=== PATIENT | male | born 1945 | race Caucasian/White ===

== ENCOUNTER 2016-10-19 23:01 | Day surgery (SDC) | payer MEDICARE, OTHER ==
[~2016-10-19] VITALS: Ht 182.9 cm; Wt 98.8 kg
[2016-10-19] MEDS ORDERED: DiphenhydrAMINE 50 MG/ML INJECTION IV ONE (23:45)
[2016-10-19] MEDS ORDERED: HYDROMORPHONE 2mg/ml INJECTION IV ONE (23:45)
[2016-10-19] MEDS ORDERED: ONDANSETRON 4mg/2ml INJECTION IV ONE (23:45)
--- NOTE | 2016-10-19 23:52 | ERPDOC ---
Departure Disposition Decision Date: Oct 20, 2016 Disposition Decision Time: 01:10 Disposition: 02 [place] [facility] [place] Impression Impression: Primary Impression: Acute appendicitis Acute appendicitis type: unspecified acute appendicitis type Qualified Codes : K35.80 - Unspecified acute appendicitis Condition: Improved Seen By: Physician only Problems/Meds/Labs Reviewed?: Yes Medications reviewed and manag: Yes Follow up care ordered?: No (OBSERVATION) Mental Status: Alert, Oriented HPI - Abdominal Pain General Chief Complaint: Abdominal Pain Stated Complaint: LOWER ABD PAIN Time Seen by Provider: 23:17 Source: patient, family () HPI - Abdominal Pain Initial Comments 71 YO WM who presents to ER for right lower quadrant abdominal pain. Patient reports onset of pain this morning. He has associated nausea and decreased appetite. Pain Scale: Now & Worst: 7/10 Location: RLQ 1 - RLQ pain Modifying Factors: WORSE WITH: movement, palpation, walking Associated Symptoms: DENIES: back pain, chest pain, diaphoresis, shortness of breath, syncope Hx of Similar Symptoms: No Allergies: Coded Allergies: Iodinated Contrast Media - Oral and (Verified Allergy, Unknown, 10/19/16) Past History Past Medical History Metabolic: diabetes, hypertension Surgical History General: gallbladder Family History Family History Comments Non-contributory Social History Smoking Status: Never smoker Substance Use Type: does not use Marital Status: Sexuality: female partner Housing: house Household Members: spouse Social History Comments visiting for Review of Systems Constitutional Constitutional: appetite decrease, DENIES: fever Eyes General: DENIES: erythema, exudate, photophobia Vision: DENIES: blurring ENMT Sinuses: DENIES: congestion Nose: DENIES: nosebleeds Mouth/Throat: DENIES: change in swallowing, painful swallowing, sore throat Cardiovascular Cardiac: DENIES: chest pain, dyspnea on exertion Rhythm/Rate: DENIES: irregular beat, palpitations Pulmonary Respiratory: DENIES: cough, dyspnea, pleuritic chest pain GI Upper Abdomen: nausea, see HPI, DENIES: hematemesis, vomiting Lower Abdomen: pain (right lower quadrant), DENIES: blood in stool, constipation, melena General: DENIES: burning, cloudy urine, dysuria, frequency, hematuria, pain, urgency Neurological General: DENIES: headache, seizures, syncope Hematologic/Lymphatic Hematologic/Lymphatic: DENIES: anemia, easy bruising All other Systems All Other Systems: Reviewed and Negative Physical Exam General General Nourishment: well nourished, well developed, appears stated age, no acute distress Vitals and Pain First Documented Vital Signs Date Time Temp Pulse Resp B/P Pulse Ox O2 Delivery O2 Flow Rate FiO2 10/19/16 23:09 97.3 83 16 129/80 97 Room Air Weight: Kilograms: 95.300 Height (feet): 6 Height (inches): 0 Triage Pain Scale: RN VS reviewed by Provider: Yes Normal Exams: Head: Normocephalic w/o trauma Eyes: Pupils are PERRLA w/ EOMI, No scleral icterus ENMT: No facial trauma, nasal exudates, pharyngeal erythema Neck: Full range of motion, without adenopathy, JVD, bruits or thyromegaly Chest/Resp: Clear all whitfield, with good airflow, and symmetry bilaterally CV: Regular rate and rhythm, without murmur or gallop, Pulses 2+ all extremities, capillary refill, <2 seconds all ext., no pedal edema noted Musculoskeletal: No tenderness, or deformity noted, good range of motion Integumentary: No rashes, hives, or bruising noted Neurologic: Patient is alert, and oriented, cranial nerves, motor/sensory/ cerebellar, exams w/o gross deficits Psychiatric: Patient exhibits, appropriate attention, emotion and affect Abdomen (brief) Abdominal Brief: FOUND: soft, tender (Tender to palpation RLQ. Voluntary guarding.), NOT FOUND: distended, hepatosplenomegaly, pulsatile mass Differential Diagnoses Considering: Appendicitis, Diverticulitis, Gastroenteritis, Renal Colic, UTI Progress Results/Orders Orders Procedure Category Date Status Time Cbc W/Auto LAB 10/19/16 Complete Diff-Reflex Manual Cmp - Comprehensive LAB 10/19/16 Complete Metabolic Ua, Dip Wreflex LAB 10/19/16 Complete Micro[employer] Setter 23:32 Ondansetron Inj PHA 10/19/16 Complete (Zofran) 23:45 Diphenhydramine PHA 10/19/16 Complete (Benadryl) 23:45 Methylprednisolone PHA 10/19/16 Complete Sod Succ (Solu-Medrol 23:45 Hydromorphone PHA 10/19/16 Complete (Dilaudid) 23:45 Ct Abd/Pelvis CT 10/20/16 Taken W/Contrast Only 00:17 Iohexol (Omnipaque) PHA 10/20/16 Complete 00:21 Normal Saline (Ns) PHA 10/20/16 Complete 00:21 Saline Flush (Iv PHA 10/20/16 Complete Flush) 00:21 Normal Saline (Normal PHA 10/20/16 Complete Saline Iv) 00:45 Place In Facility: ED ADM 10/20/16 Transmitted 01:19 Measure Vital Signs MIKAYLA 10/20/16 In Process 01:19 Up In Room With Assist [facility] 10/20/16 In Process 01:19 Npo: Nothing By Mouth DIET 10/20/16 Transmitted Breakfast Iv Lock (Nursing) [facility] 10/20/16 In Process 01:19 Normal Saline (Normal PHA 10/20/16 In Process Saline Iv) 01:19 Pantoprazole PHA 10/20/16 In Process (Protonix Iv) 09:00 Ondansetron Inj PHA 10/20/16 In Process (Zofran) 01:30 Blood Glucose [facility] 10/20/16 In Process Assessment Bgm 01:19 Cbc W/Auto LAB 10/21/16 Verified Diff-Reflex Manual 04:00 Cmp - Comprehensive LAB 10/21/16 Verified Metabolic 04:00 Ertapenem (Invanz) PHA 10/20/16 Complete 01:30 Hydromorphone PHA 10/20/16 In Process (Dilaudid) 01:30 Lab Results Laboratory Tests Test 10/19/16 23:49 10/19/16 23:54 White Blood Count 10.8T/MM3 Red Blood Count 4.85M/MM3 Hemoglobin 15.7GM/DL Hematocrit 44.9% Mean Corpuscular Volume 92.6UM3 Mean Corpuscular Hemoglobin 32.4UUG Mean Corpuscular Hemoglobin Concent 35.0GM/DL RDW Standard Deviation 45.1FL Platelet Count 156T/MM3 Mean Platelet Volume 9.7UM3 Immature Granulocyte % (Auto) 0.3% Neutrophils (%) (Auto) 72.3% Lymphocytes (%) (Auto) 19.1% Monocytes (%) (Auto) 7.5% Eosinophils (%) (Auto) 0.5% Basophils (%) (Auto) 0.3% Absolute Immature Granulocyte (auto 0.03T/MM3 Absolute Neutrophils (auto) 7.8T/MM3 Absolute Lymphocytes (auto) 2.1T/MM3 Absolute Monocytes (auto) 0.8T/MM3 Absolute Eosinophils (auto) 0.1T/MM3 Absolute Basophils (auto) 0.0T/MM3 Turbidity < 20 Sodium Level 145MEQ/L Potassium Level 3.8MEQ/L Chloride Level 108MEQ/L Carbon Dioxide Level 24MEQ/L Anion Gap 13MEQ/L Blood Urea Nitrogen 9.0MG/DL Creatinine 0.7MG/DL Glomerular Filtration Rate Calc 112 BUN/Creatinine Ratio 13RATIO Glucose Level 148MG/DL Calculated Osmolality 281MOSM/KG Calcium Level 9.0MG/DL Total Bilirubin 0.80MG/DL Icterus Index < 2 Aspartate Amino Transf (AST/SGOT) 20U/L Alanine Aminotransferase (ALT/SGPT) 32U/L Alkaline Phosphatase 62U/L Total Protein 5.9G/DL Albumin 3.7G/DL Globulin 2.2G/DL Albumin/Globulin Ratio 1.7RATIO Chemistry Specimen Hemolysis < 15 Urine Collection Type Cleancatch-midstream Urine Color Yellow Urine Turbidity Clear Urine pH 5.5 Urine Specific Mcintosh 1.020 Urine Protein Negative Urine Glucose (UA) 3+ Urine Ketones 1+ Urine Blood Negative Urine Nitrite Negative Urine Bilirubin Negative Urine Urobilinogen 0.2EU/DL Urine Leukocyte Esterase Negative Urinalysis Comment Microscopic not ind. Medications Current ED Medications Ondansetron HCl (Zofran) 4 mg O ONCE IV Last administered on 10/19/16 23:56; Start 10/19/16 at 23:45; Stop 10/19/16 at 23:46; Status DC Diphenhydramine HCl (Benadryl) 50 mg O ONCE IV Last administered on 10/20/16 00:00; Start 10/19/16 at 23:45; Stop 10/19/16 at 23:46; Status DC Methylprednisolone Sodium Succinate (Solu-Medrol) 125 mg O ONCE IV Last administered on 10/19/16 23:59; Start 10/19/16 at 23:45; Stop 10/19/16 at 23:46 ; Status DC Hydromorphone HCl (Dilaudid) 0.5 mg O ONCE IV Last administered on 10/20/16 00:06; Start 10/19/16 at 23:45; Stop 10/19/16 at 23:46; Status DC Iohexol 1 bottle 1 bottle STK-MED ONCE .ROUTE ; Start 10/20/16 at 00:21; Stop at 00:22; Status DC Sodium Chloride (NS) 100 ml @ As Directed STK-MED ONCE .ROUTE ; Start 10/20/16 at 00:21; Stop 10/20/16 at 00:22; Status DC Sodium Chloride 10 ml 10 ml STK-MED ONCE .ROUTE ; Start 10/20/16 at 00:21; Stop 10/20/16 at 00:22; Status DC Sodium Chloride 1,000 ml @ 0 mls/hr Q0M ONCE IV Last administered on 00:54; Start 10/20/16 at 00:45; Stop 10/20/16 at 00:46; Status DC Sodium Chloride (Normal Saline IV) 1,000 ml @ 125 mls/hr Q8H IV Last administered on 10/20/16 02:03; Start 10/20/16 at 01:19 Progress Progress 2317: Discussed with patient his previous reactions to IV contrast. Patient reports it was "some time ago" and that he had a localized reaction with a rash in the arm with the IV where contrast was administered. He denies any associated shortness of breath, swelling or rash at any other locations. 0030: Patient has no evidence of allergic reaction to IV contrast at this time. No rash, dyspnea, facial swelling or other concerns. He reports his pain is improved after IV medications. 0105: [facility] called regarding results of CT scan positive for appendicitis. Consult/PCP Consult/PCP : Physician Contacted: Dr. Ortiz xiong Time Called: 01:11 Time of first response: 01:14 Type of discussion: Admit Discussion/PCP Discussion Details Discussed case. Will admit patient. admission orders discussed CT CT : CT: Abd/Pelvis IV contrast (Inflammatory changes in RLQ and periappendiceal region noted. Appendix measuring up to 14 mm. Findings consistent with acute appendicitis.) Interpretation: Abnormal, Discussed w/ Radiologist BRADY SOUTH MD Oct 19, 2016 23:52
[2016-10-19 23:56] LABS: BASOPHILS % (AUTO) 0.3 % (0-2); EOSINOPHILS # (AUTO) 0.1 T/MM3 (0-0.5); EOSINOPHILS % (AUTO) 0.5 % (0-4); HCT - HEMATOCRIT 44.9 % (41-53); HGB - HEMOGLOBIN 15.7 GM/DL (13.5-17.5); IMMATURE GRANULOCYTE # (AUTO) 0.03 T/MM3 (0.00-0.03); IMMATURE GRANULOCYTE % (AUTO) 0.3 % (0.0-0.5); LYMPHOCYTES # (AUTO) 2.1 T/MM3 (1-4.8); LYMPHOCYTES % (AUTO) 19.1 % (23-45); MEAN CORPUSCULAR HGB 32.4 UUG (26-34); MEAN CORPUSCULAR VOLUME 92.6 UM3 (80-100); MEAN PLATELET VOLUME 9.7 UM3 (9.4-12.4); MONOCYTES # (AUTO) 0.8 T/MM3 (0-0.8); MONOCYTES % (AUTO) 7.5 % (0-9.0); NEUTROPHILS #(AUTO)-ABSOLUTE 7.8 T/MM3 (1.8-7.7); NEUTROPHILS % (AUTO) 72.3 % (33-66); RED BLOOD COUNT 4.85 M/MM3 (4.50-5.90); WBC - WHITE BLOOD COUNT 10.8 T/MM3 (4.5-11.0)
[2016-10-20] VITALS (25 sets, daily range): BP systolic 86–169; BP diastolic 50–86; PULSE 70–104; RESP 11–23; TEMP 96.6–98.7; O2SAT 92–97; Ht 182.9 cm; Wt 98.8 kg
[2016-10-20 00:03] LABS: BLOOD, URINE NEGATIVE (NEGATIVE); COLOR,URINE YELLOW (YELLOW); LEUKOCYTE ESTERASE ,URINE NEGATIVE (NEGATIVE); NITRITE,URINE NEGATIVE (NEGATIVE); UROBILINOGEN,URINE 0.2 EU/DL (NORMAL)
[2016-10-20 00:06] LABS: ALBUMIN 3.7 G/DL (3.5-5.0); ALBUMIN/GLOBULIN RATIO 1.7 RATIO (1.1-2.2); ALKALINE PHOSPHATASE 62 U/L (38-126); ALT (SGPT) 32 U/L (21-72); ANION GAP 13 MEQ/L (5-15); AST (SGOT) 20 U/L (17-59); BUN/CREATININE RATIO 13 RATIO (6-26); CHLORIDE 108 MEQ/L (98-107); CO2 - CARBON DIOXIDE 24 MEQ/L (22-30); CREATININE 0.7 MG/DL (0.8-1.5); GLOMERULAR FILTRATION RATE 112; GLUCOSE 148 MG/DL (75-110); POTASSIUM 3.8 MEQ/L (3.6-5); SODIUM 145 MEQ/L (134-144); TOTAL PROTEIN 5.9 G/DL (6.3-8.2)
[2016-10-20] MEDS ORDERED: PRAM0.5T12 PO (00:20)
[2016-10-20] MEDS ORDERED: TERA2CAP4 PO (00:20)
[2016-10-20] MEDS ORDERED: EXEN2PEN SQ (00:20)
[2016-10-20] MEDS ORDERED: LOSA100T44 PO (00:20)
[2016-10-20] MEDS ORDERED: DIAZ2TAB3 PO (00:20)
[2016-10-20] MEDS ORDERED: ATOR20TA59 PO (00:20)
[2016-10-20] MEDS ORDERED: METF10002 PO (00:20)
[2016-10-20] MEDS ORDERED: SALINE FLUSH 10ml SYRINGE ONE (00:21)
[2016-10-20] MEDS ORDERED: NORMAL SALINE 100 ML ONE (00:21)
[2016-10-20] MEDS ORDERED: IOHEXOL 300 MG/ML 100ml INJECTION ONE (00:21)
[2016-10-20] MEDS ORDERED: NORMAL SALINE 1,000 ML IV ONE (00:45)
--- NOTE | 2016-10-20 00:54 | NUR ---
REPORT REPORT RECIEVED FROM JEF CABRAL
--- NOTE | 2016-10-20 01:05 | NUR ---
STATUS PT SITTING ON THE CART WITH HOB ELEVATED TO COMFORT VISITING WITH WHO IS AT BEDSIDE PT REPORTS HIS PAIN IS MAYBE 2-3/10 IF NOT PUSHED ON DENIES ANY NAUSEA
[2016-10-20] MEDS ORDERED: HYDROMORPHONE 2mg/ml INJECTION IV PRN (01:30)
[2016-10-20] MEDS ORDERED: ERTAPENEM 1 G in NORMAL SALINE 100 ML IV ONE (01:30)
[2016-10-20] MEDS ORDERED: ONDANSETRON 4mg/2ml INJECTION IV PRN ×2 (01:30→15:30)
--- NOTE | 2016-10-20 01:33 | NUR ---
REPORT REPORT CALLED TO ISAIAS CABRAL ON SURGICAL UNIT
--- NOTE | 2016-10-20 01:45 | NUR ---
ADMISSION PT BROUGHT VIA ED CART TO ROOM 107. AMBULATED FROM CART TO BED AT THIS TIME. FAMILY MEMBER AT BEDSIDE.
--- NOTE | 2016-10-20 01:45 | NUR ---
ADMIT PT TAKEN TO THE SURGICAL UNIT PER CART BY JORJE CABRAL ESCORTED TO ROOM 110 BY RN AND
[2016-10-20] MEDS: NORMAL SALINE 1,000 ML IV SCH ×2 (02:03→11:27)
--- NOTE | 2016-10-20 05:08 | NUR ---
SHIFT SUMMARY PT ALERT AND ORIENTED X3, VITAL SIGNS ARE STABLE ON ROOM AIR, DENIES C/P,N/V AND SOA. PT AMBULATES TO THE BATHROOM WITH A STANDBY. PT HAS DENIED NEED FOR PRN PAIN MEDICATION AT THIS TIME. PT IS NPO UNTIL DR RYAN ASSESSES PT THIS AM. WILL CONTINUE TO MONITOR.
[2016-10-20] MEDS ORDERED: PANTOPRAZOLE 40mg INJECTION IV SCH (09:00)
--- NOTE | 2016-10-20 11:07 | HPF ---
HISTORY OF PRESENT ILLNESS This patient is 71 years old. This patient developed the onset of some abdominal pain on the afternoon of 10/19/16. The patient also had some diarrhea on the afternoon of 10/19/16. The patient had a lot of nausea but no vomiting. The patient had right lower quadrant abdominal pain. The right lower quadrant abdominal pain intensified. The patient did come to [facility] emergency room for evaluation of the pain late on the evening of 10/19/16 shortly before midnight. The patient did undergo a CT scan of the abdomen and pelvis at the emergency room for evaluation of the right lower quadrant abdominal pain. The CT scan of the abdomen and pelvis shows acute appendicitis. The patient was then admitted to [facility] from the emergency room for treatment of the acute appendicitis. PAST MEDICAL HISTORY Previous operations: 1. Laparoscopic cholecystectomy in 2012 at [place] [place], [place]. Other current medical problems: 1. Type 2 diabetes mellitus. 2. Hypertension. 3. Hyperlipidemia. SOCIAL HISTORY The patient lives in [place], [place]. He was traveling through [place] at the time that he developed this right lower quadrant abdominal pain. The patient does not smoke cigarettes. CURRENT MEDICATIONS 1. Lipitor 20 mg one p.o. at bedtime daily. 2. Valium 2 mg one p.o. q.i.d. p.r.n. back muscle spasm. 3. Losartan potassium 100 mg one p.o. daily 4. Metformin 1000 mg one p.o. b.i.d. with meals. 5. Terazosin 2 mg one capsule p.o. at bedtime daily 6. Bydureon Pen one injection subcutaneously each week. ALLERGY HISTORY The patient is allergic to iodine contrast material.. PHYSICAL EXAMINATION VITAL SIGNS: Temperature is 96.6 degrees temporal. Pulse is 84. Respiratory rate is 16. Blood pressure is 130/80. Oxygen saturation is 92% on room air. Height is 72 inches. Weight is 95.4 kg. BMI is 28.5 kg per meters squared. HEENT: No abnormalities noted. NECK: No neck masses. CHEST: Lung sounds are clear. HEART: Regular rhythm. No murmurs. ABDOMEN: The patient has old laparoscopic cholecystectomy incision scars. No abdominal masses. There is well-localized right lower quadrant abdominal tenderness. RECTUM: Exam deferred. SKIN: No jaundice. EXTREMITIES: No abnormalities noted. LABORATORY DATA White blood cell count is 10,800. Hemoglobin is 15.7. Hematocrit is 44.9. Total bilirubin is 0.8. AST and ALT are normal. Alkaline phosphatase is normal. IMAGING DATA The patient did have a CT scan of the abdomen and pelvis performed at [facility] emergency room on 10/20/16. The CT scan of the abdomen and pelvis shows findings consistent with acute appendicitis. IMPRESSION 1. Acute appendicitis. 2. Type 2 diabetes mellitus. 3. Hypertension. 4. Hyperlipidemia. PATIENT EDUCATION I did inform the patient of the nature of a laparoscopic appendectomy operation. Expected benefits were reviewed. Alternatives were reviewed. Potential risks and complications were reviewed. Recovery from the operation was discussed. Questions were solicited from the patient. All of his questions were answered. The patient does wish to proceed. PLAN Laparoscopic appendectomy by Dr. Alcantar at [facility]. GAL
[2016-10-20] MEDS ORDERED: BUPIVACAINE 0.25% (2.5mg/ml) INJ 30ml SDV ONE (12:51)
--- NOTE | 2016-10-20 13:30 | ANESPREOP ---
Anesthesia Record Date and Time DATE: 10/20/16 TIME: 13:28 Pre-Op Diagnosis Acute Appy Proposed Surgical Procedure Lap Appy NPO since: MN Allergies: Coded Allergies: Iodinated Contrast Media - Oral and (Verified Allergy, Unknown, 10/19/16) Ht/Wt/BMI Height: 6 ' 0.00 " Weight: 95.400 kg BMI: 28.6 kg/m2 Vital Signs Date Time Temp Pulse Resp B/P Pulse Ox O2 Delivery O2 Flow Rate FiO2 10/20/16 13:03 97.0 70 16 137/82 96 Room Air Medications Inpatient Medications Current Medications Medications (Trade) Dose Ordered Sig/Nehemiah Start Time Stop Time Status Last Admin Dose Admin Sodium Chloride (Normal Saline IV) 1,000 ml @ 125 mls/hr Q8H 10/20/16 01:19 10/20/16 11:27 125 MLS/HR Pantoprazole Sodium (Protonix Iv) 40 mg DAILY 10/20/16 09:00 10/20/16 08:42 40 MG Ondansetron HCl (Zofran) 4 mg Q6H PRN 10/20/16 01:30 Hydromorphone HCl (Dilaudid) 0.5 mg Q2HR PRN 10/20/16 01:30 Atorvastatin Calcium (Atorvastatin Calcium) 20 Mg Tablet, 1 TAB PO HS, (Reported ) Diazepam (Diazepam) 2 Mg Tablet, 2 MG PO QIDPRN, (Reported) Exenatide Microspheres (Bydureon Pen) 2 Mg/0.65 Ml Pen.injctr, 1 SYRINGE SQ 1 WEEK, (Reported) Losartan Potassium (Losartan Potassium) 100 Mg Tablet, 100 MG PO DAILY, ( Reported) Metformin HCl (Metformin HCl) 1,000 Mg Tablet, 1 TAB PO BIDWM, (Reported) Take one tablet, by mouth, twice daily with meals Pramipexole Di-HCl (Pramipexole Dihydrochloride) 0.5 Mg Tablet, 0.5 MG PO BID, ( Reported) Take 1 tablet, by mouth, 3 times a day. Terazosin HCl (Terazosin HCl) 2 Mg Capsule, 1 CAP PO HS, (Reported) Currently on Beta Lai: No Medical/Surgical History Anesthesia PMH: Reports: *Diabetes, *Hypertension (takes medication and being treated.), Denies: *MO, Asthma, Blood Transfusion Reac, CHF, COPD, CVA/Stroke/ TIA, Cancer, Seizures Smoking Status: Never smoker Has pt. smoked today?: No Use Chewing Tobacco?: No Second Hand Exposure: No Substance Use Type: does not use Alcohol Intake: daily (beer) Last Drink: unknown Past Surgical History Orthopedic Surgeries: Yes - rotator cuff and a laminectomy Abdominal Surgeries: Yes - lap ry Genitourinary Surgeries: No Cardiac Surgeries: No Endocrine Surgeries: No Reproductive Surgeries: Neurological Surgeries: No Ear Surgeries: No Nose Surgeries: No Throat Surgeries: No Other Surgeries: No Anesthesia Adverse Reactions: FOUND none Family Hx of Anesthesia Advers: none Hx of Motion Sickness: No Pertinent Findings Laboratory Tests 10/19/16 23:49 Physical Exam Respiratory: Bilat breath sounds equal, Lungs clear Cardiovascular: FOUND Regular rate, rhythm, FOUND No murmur Airway Assessment Mallampati Score: III TMD: 3 Fingerbreadths Neck Extension: Good Overall Assessment: May Be Diff Intubation ASA: 2, E Plan Anesthesia Plan: GETA Discussion Discussed risks/options/alternatives of anesthesia and questions answered. Patient consents. Nursing pain assessment noted. Present: Spouse Attestation Statement Prior to the delivery of any anesthetic medication, I examined the patient, developed the plan, obtained the patient's consent and discussed the risk and benefits of the procedure with the patient/guardian. ZANDER MASSEY CRNA Oct 20, 2016 13:29
--- NOTE | 2016-10-20 13:30 | NUR ---
LEFT UNIT PT LEFT UNIT TO SURGERY CARE WITH MISHA ESPARZA FROM PREOP/PACU. PT LEFT VIA WHEELCHAIR. WITH IV FLUIDS INFUSING. PT'S FAMILY FOLLOWED TO SURGERY CARE.
[2016-10-20] MEDS ORDERED: FENTANYL 250mcg/5ml INJECTION ONE (13:33)
[2016-10-20] MEDS ORDERED: ROCURONIUM 50mg/5ml INJECTION IV ONE (13:44)
[2016-10-20] MEDS ORDERED: PROPOFOL 200mg 20 ML IV ONE (13:44)
[2016-10-20] MEDS ORDERED: LIDOCAINE JELLY 2% 30ml TUBE ONE (15:16)
--- NOTE | 2016-10-20 15:22 | GSPOSTPROC ---
Immediate Operative Note DATE: 10/20/16 TIME: 15:20 Postop Diagnosis: Acute appendicitis Surgical Procedure: Other (Laparoscopic appendectomy) Surgeon: Ortiz ASA: 2, E ARABELLA RYAN MD Oct 20, 2016 15:22
[2016-10-20] MEDS ORDERED: IBUPROFEN 200 MG TABLET PO PRN (15:30)
[2016-10-20] MEDS ORDERED: PROMETHAZINE 25 MG INJECTION IV PRN (15:30)
[2016-10-20] MEDS ORDERED: MORPHINE SULFATE 10 MG SYRINGE IV PRN (15:30)
[2016-10-20] MEDS ORDERED: ACETAMINOPHEN 500 MG TABLET PO PRN (15:30)
[2016-10-20] MEDS ORDERED: OXYCODONE I.R. 5 MG TABLET PO PRN (15:30)
--- NOTE | 2016-10-20 15:50 | ANESPO ---
Post-Op Note Date 10/20/16 Time: 15:50 Status Pt Participated in Evaluation: Pt participated in person Vital Signs Date Time Temp Pulse Resp B/P Pulse Ox O2 Delivery O2 Flow Rate FiO2 10/20/16 15:40 98 16 99/60 95 Room Air 10/20/16 15:25 97.9 Respiratory Function: Airway patent, Regular respirations Cardiovascular Function: Regular pulse Telemetry Pattern: SR Mental Status: Alert/oriented Pain Level Intensity: 0 Hydration: IV infusing Complications during Recovery None apparent Follow-Up Instructions Instructions Per Surgeon ZANDER MASSEY CRNA Oct 20, 2016 15:50
[2016-10-20] MEDS: LR 1,000 ML IV SCH (15:55)
--- NOTE | 2016-10-20 16:26 | DI ---
Indication: ITS.REASON: RLQ PAIN PROCEDURE: CT ABD/PELVIS W/CONTRAST ONLY: Encounter: Initial Comparison: None Technique: Axial CT images were performed through the abdomen and pelvis after the administration of intravenous contrast. Coronal and sagittal two-dimensional reformats. Automated Exposure Control and Iterative Reconstruction dose reducing techniques were utilized. Contrast: Omnipaque 300 100 mL Findings: Mild atelectasis in the lung bases. The liver appears normal. Gallbladder is surgically absent. The spleen, pancreas and adrenal glands are within normal limits. Small bilateral renal cysts. No abdominal or pelvic lymphadenopathy. The bladder is within normal limits. No free fluid. No evidence of a bowel obstruction. There is an abnormally enlarged inflamed appendix in the right lower quadrant. There is pericolonic inflammatory change with an appendicolith at the appendiceal base. Appendix is dilated up to 1.3 cm in diameter. Bone windows show degenerative and postoperative changes in the lumbar spine. Impression: Acute appendicitis. Emergent surgical consultation is recommended. There is a preliminary report by [facility]. .
--- NOTE | 2016-10-20 17:00 | OPNOTEF ---
DATE OF OPERATION 10/20/16 PREOPERATIVE DIAGNOSIS Acute appendicitis. POSTOPERATIVE DIAGNOSIS Acute appendicitis. OPERATION Laparoscopic appendectomy. SURGEON Dr. Lon Alcantar ANESTHESIA General. ASA CLASS 2E. FINDINGS The patient did appear to have acute appendicitis. There did not appear to be a perforation of the appendix. There was no periappendiceal abscess. Terminal ileum appeared normal. Cecum appeared normal. Ascending colon appeared normal. Liver appeared normal. The gallbladder was absent as a result of previous operative removal.. DESCRIPTION OF OPERATION The patient was placed in supine position on the operating table. General anesthesia was satisfactorily induced. A Xiao catheter was inserted into the urinary bladder. The abdomen was prepped and draped in routine sterile fashion. The skin and underlying structures at the abdominal wall at a supraumbilical incision site were infiltrated with bupivacaine 0.25% without epinephrine. A supraumbilical incision was made. Veress needle was inserted into the peritoneal cavity through the incision. Pneumoperitoneum was established with carbon dioxide. The Veress needle was removed. A 5-mm port was placed at the supraumbilical incision. The 5 mm laparoscope was inserted through the 5 mm supraumbilical port. The skin and underlying abdominal wall structures were infiltrated with bupivacaine at the lateral margin of the right rectus abdominis muscle at the right upper quadrant of the abdomen at another incision site. An incision was made at this location and a 5-mm port was placed at the right upper quadrant abdominal incision. The skin and underlying abdominal wall structures were infiltrated with bupivacaine at a suprapubic incision site. A suprapubic incision was made at the midline. A 12- mm port was placed at the suprapubic incision. The peritoneal cavity was examined with the laparoscope with findings as described above. The appendix was grasped and elevated with endoscopic Kacie forceps inserted at the suprapubic port. The mesoappendix was divided with the Ethicon brand 5 mm laparoscopic ultrasonically activated coagulating sundeep. This was the Harmonic Torsten ultrasonic sundeep. This was introduced at the right upper quadrant port. The mesoappendix was coagulated and divided with the Ethicon brand 5 mm laparoscopic ultrasonically activated coagulating sundeep. The appendix was completely freed up in this manner. Two separate 0PDS Endoloop ligatures were applied to the base the appendix adjacent to the cecum. The appendix was then divided just beyond these ligatures with a curved dissecting scissors. The appendix was placed in a specimen retrieval pouch. The specimen retrieval pouch containing the appendix was brought out through the suprapubic incision. The appendix was submitted as a specimen for study by the pathologist. The 12-mm port was reinserted at the suprapubic incision. The appendectomy site looked good. The appendiceal stump looked good. Irrigation was performed at the right lower quadrant of the abdomen around the cecum. Irrigation was performed at the pelvis. Irrigation was performed at the right lateral gutter. Irrigation fluid was removed. Hemostasis remained satisfactory at the appendectomy site. The suprapubic port was removed. The right upper quadrant port was removed. The laparoscope was removed. The supraumbilical port was removed. Carbon dioxide was removed from the peritoneal cavity by desufflation. The fascial layer of the suprapubic incision was closed with a series of simple interrupted stitches using 0 Vicryl suture. Skin margins were then closed at all the incisions with subcuticular stitches using 4-0 Vicryl suture. Benzoin and 1/4 inch wide Steri- Strips were applied to the incisions. Sterile dressings were applied. The patient tolerated the operation well. The patient was transferred from the operating room to the recovery room in satisfactory condition. GAL
--- NOTE | 2016-10-20 17:48 | NUR ---
STATUS PT DOING WELL POST SURGERY. PT REPORTS PAIN AT A 2/10 AT THIS TIME, AND DOES NOT FEEL THE NEED FOR PAIN MEDIATIONS. PT HAS 3 LAPAROSCOPIC SITES ON THE ABDOMEN, THAT REMAIN CLEAN, DRY, AND INTACT AT THIS TIME. PT IS ADVANCED TO A REGULAR DIET. PT TOLERATED CLEAR LIQUIDS WELL FOR STAFF. PT IS AWARE OF HOW TO USE HIS CALL LIGHT TO GET A HOLD OF STAFF IF NEEDED.
[2016-10-20] MEDS: INSULIN ASPART 100 UNIT/ML SQ PRN ×2 (19:04→21:33)
--- NOTE | 2016-10-21 03:43 | NUR ---
Chart Check 24 hour chart check completed
[2016-10-21 03:47] VITALS: BP 105/66; PULSE 70; RESP 16; TEMP 97.7; O2SAT 92
[2016-10-21 04:41] LABS: BASOPHILS % (AUTO) 0.1 % (0-2); EOSINOPHILS % (AUTO) 0.1 % (0-4); HCT - HEMATOCRIT 41.2 % (41-53); HGB - HEMOGLOBIN 14.1 GM/DL (13.5-17.5); IMMATURE GRANULOCYTE # (AUTO) 0.03 T/MM3 (0.00-0.03); IMMATURE GRANULOCYTE % (AUTO) 0.3 % (0.0-0.5); LYMPHOCYTES # (AUTO) 1.9 T/MM3 (1-4.8); LYMPHOCYTES % (AUTO) 17.7 % (23-45); MEAN CORPUSCULAR HGB 32.6 UUG (26-34); MEAN CORPUSCULAR HGB CONC(MCHC 34.2 GM/DL (31-37); MEAN CORPUSCULAR VOLUME 95.2 UM3 (80-100); MEAN PLATELET VOLUME 10.1 UM3 (9.4-12.4); MONOCYTES # (AUTO) 0.9 T/MM3 (0-0.8); MONOCYTES % (AUTO) 7.9 % (0-9.0); NEUTROPHILS % (AUTO) 73.9 % (33-66); RED BLOOD COUNT 4.33 M/MM3 (4.50-5.90); WBC - WHITE BLOOD COUNT 10.8 T/MM3 (4.5-11.0)
[2016-10-21] MEDS: INSULIN ASPART 100 UNIT/ML SQ PRN ×2 (05:44→11:04)
[2016-10-21] MEDS: LR 1,000 ML IV SCH (05:47)
--- NOTE | 2016-10-21 05:50 | NUR ---
BGM BGM 166; 3 units Novolog given per sliding scale.
[2016-10-21 07:49] VITALS: BP 109/69; PULSE 65; RESP 16; TEMP 96.9; O2SAT 96
[2016-10-21 07:50] VITALS: PULSE 65; RESP 16
[2016-10-21] MEDS ORDERED: ERTAPENEM 1 G in NORMAL SALINE 100 ML IV SCH (09:00)
--- NOTE | 2016-10-21 10:47 | NUR ---
CM CM IN TO VISIT WITH PT. HE IS ALERT AND ORIENTED. HIS IS PRESENT. THEY DENY DC NEEDS. THEY PLAN FOR PT TO DC HOME. THEY ARE CURRENTLY STAYING IN THEIR RV LOCALLY. THEY ARE GIVEN CM CONTACT INFORMATION. Addendum: 10/21/16 at 1048 by CRYSTAL DUMAS RN Amended: Links added.
[2016-10-21 12:11] VITALS: BP 107/71; PULSE 64; RESP 16; TEMP 97.3; O2SAT 93
[2016-10-21] MEDS ORDERED: CIPR-280 PO (14:15)
[2016-10-21] MEDS ORDERED: METR500T PO (14:15)
--- NOTE | 2016-10-21 14:17 | PNF ---
DATE 10/21/2016 POSTOP DAY #1 HISTORY The patient is doing well. He is tolerating a regular diet. He has been up ambulating in the halls. He has had minimal pain and has not used any oral analgesics so far today. He feels much better than when he came into the hospital. PHYSICAL EXAMINATION VITAL SIGNS: Temperature is 97.3 degrees oral. Pulse is 64. Respiratory rate is 16. Blood pressure is 107/71. Oxygen saturation is 93% on room air. ABDOMEN: All the abdominal incisions look good. LABORATORY DATA White blood cell count is 10,800. Hemoglobin is 14.1. Hematocrit is 41.2. Most recent glucometer reading was 214. Glucometer reading before that was 166. IMPRESSION Doing well following laparoscopic appendectomy on 10/20/2016. TREATMENT 1. I did give the patient a written prescription for Cipro 500 mg one p.o. b.i.d. (dispense 10 - no refills). 2. I did give the patient a written prescription for Flagyl 500 mg one p.o. t.i.d. (dispense 15 - no refills). PLAN 1. Dismiss patient from [facility] today. DISCHARGE MEDICATIONS 1. Use Cipro as prescribed. 2. Use Flagyl as prescribed. 3. Resume prehospitalization medications. 4. The patient plans to use Tylenol and ibuprofen for pain control. He may use some Aleve instead of ibuprofen. GAL
--- NOTE | 2016-10-21 14:40 | NUR ---
Discharge Pt discharged at this time via ambulatory status through the ER entrance in the company of an adult. VS stable on RA. IV catheter DC'd prior to discharge, catheter intact. Wristband removed. Pt denied nausea and pain this shift. Prescriptions given to Pt to take to preferred pharmacy. Discharge packet and instructions gone over with Pt. This RN discussed medications, diet, activity, restrictions, and follow up appt. Pt verbalized understanding.
--- NOTE | 2016-10-21 15:36 | NUR ---
DM Screen Azul: Regular Diet Patient was D/C before RD visited. Will attempt to contact for outpatient diabetes counseling. RD available @ [phone] Addendum: 10/21/16 at [address] Student charting reviewed by Electromechanical Equipment Assembler. Addendum: 10/21/16 at 1648 by CHANTELLE COVARRUBIAS Patient lives in [facility],and was just traveling through therefore no other plans to contact. Addendum: 10/21/16 at [address] Student charting reviewed by Electromechanical Equipment Assembler.
--- OUTSIDE RECORDS SUMMARY | 2016-10-22 10:11 | XMS REPORT | Continuity of Care Document ---
Author Author [facility] Organization [facility] Address Unknown Phone Unavailable Support Name Relationship Address Phone ARABELLA RYAN MD Caregiver [address] [place] [address] [address] [place] [address] Unavailable ARABELLA RYAN MD Caregiver [address] [facility] [address] [facility] [address] [place] [address] Unavailable BRADY SOUTH MD Caregiver [address] [place] [address] [place] [address] Unavailable KAR[place] [address] Insurance Providers Guarantor Daniel Hooper Address [address] [place] [address] Email DECLINED 10-19-16 Payer Medicare Policy Number [id number] Subscriber's Name Daniel Hooper Relationship 18 Self Payer Active Duty [place] Policy Number [id number] Subscriber's Name Daniel Hooper Relationship 18 Self Advance Directives Directive Response Recorded Date/Time Ordered Resuscitation Status Full Code 10/20/16 1:26am Resuscitation Documents on File No 10/20/16 1:45am DPOA for Healthcare Only Y Ivania [facility] 10/20/16 1:45am Living Will No 10/20/16 1:45am Problems Past Problems Medical Problem Onset Date Acute appendicitis Unknown Medications Current Home Medications Medication Dose Units Route Directions Days Qty Instructions Start Date Atorvastatin Calcium 20 Mg Tablet 1 Tab Oral Bedtime 10/20/16 Ciprofloxacin Hcl 500 Mg Tablet 1 Tab Oral Twice A Day 10 Tablet Diazepam 2 Mg Tablet 2 Mg Oral Four Times Daily Prn 10/20/16 Exenatide Microspheres (Bydureon Pen) 2 Mg/0.65 Ml Pen.injctr 1 Syringe Sub- Q 1 Week 10/20/16 Losartan Potassium 100 Mg Tablet 100 Mg Oral Daily 10/20/16 Metformin Hcl 1,000 Mg Tablet 1 Tab Oral Twice Daily With Meals Take one tablet, by mouth, twice daily with meals 10/20/16 Metronidazole (Flagyl) 500 Mg Tablet 500 Mg Oral Three Times A Day 15 Tablet Take 1 tablet, by mouth, every 8 hours. 10/21/16 Pramipexole Di-Hcl (Pramipexole Dihydrochloride) 0.5 Mg Tablet 0.5 Mg Oral Twice A Day Take 1 tablet, by mouth, 3 times a day. 10/20/16 Terazosin Hcl 2 Mg Capsule 1 Cap Oral Bedtime 90 Capsule 10/20/16 Social History Social History Problem Response Recorded Date/Time Onset Date Status Reason for Hospitalization Laprascopic Appendectomy 10/21/2016 2:16pm Not Applicable Not Applicable Has the pt used tobacco in the last 12 months No 10/20/2016 1:45am Not Applicable Not Applicable Query Response Start Date Stop Date Smoking Status Former smoker Hospital Discharge Instructions Instructions: Care Instructions: I was in the hospital because (patient own words): Pain in the lower right stomach Discharge Diet: Resume previous diet Discharge Activity: Restricted Follow Up Appointments: FOLLOW UP WITH DR. RYAN IN HIS OFFICE ON 10/28/2016 AT 3:30 PM. Pending Lab / Results: No Pending Lab Patient Instructions: See discharge instructions Expected Signs/Symptoms: Usual incisional discomfort Notify Physician If: Any concern about appearance of wound During Business Hours:: Please call the physician's office at [phone] and choose option 2. After Business Hours:: Please call [phone] and have the pig casting machine operator page Dr. Ryan. Pain Management/Treatment: Take analgesics as prescribed Pain Scale Utilized to Educate Patient: 0-10 Pain Scale Wound/Incision Care: May shower starting this evening. Condition at time of discharge: Good Plan of Care Discharge Date 10/21/16 2:40pm Disposition 01 DISCHARGED HOME, SELF-CARE Instructions/Education Provided Laparoscopic Appendectomy (DC) Prescriptions See Medication Section Care Plan and Goals See Discharge Instructions Section Functional Status Query Response Date Recorded Mobility Status Ambulatory October 20, 2016 1:45am Assistive Devices None October 20, 2016 1:45am Activity Limitations None October 20, 2016 1:45am Feeding Ability Independent October 20, 2016 1:45am Toileting Ability Independent October 20, 2016 1:45am Grooming Ability Independent October 20, 2016 1:45am Dressing Ability Independent October 20, 2016 1:45am Driving Ability Independent October 20, 2016 1:45am Housework Ability Independent October 20, 2016 1:45am Meal Preparation Ability Independent October 20, 2016 1:45am Stair Climbing Ability Independent October 20, 2016 1:45am Ability to complete ADL's impeded by No change October 20, 2016 1:45am Cognitive/Perceptual Impairments Impaired vision Impaired hearing October 20, 2016 1:45am Visual Assistive Devices Glasses With patient October 20, 2016 1:45am Allergies, Adverse Reactions, Alerts Allergen Type Severity Reaction Status Last Updated Iodinated Contrast Media - Oral and Allergy Unknown Active 10/19/16 Immunizations Query Response on File Recorded Date/Time Hx Influenza Vaccination No 10/20/16 1:45am Hx Pneumococcal Vaccination No 10/20/16 1:45am Hx Influenza Vaccination No 10/20/16 1:45am Influenza Vaccine Hx FALL 201510/20/16 12:00pm Vital Signs Acute Vital Signs Vital Response Date/Time Temperature (Fahrenheit) 97.3 deg F (96.8 - 99.1) 10/21/2016 12:11pm Temperature (Calculated Celsius) 36.32997 degrees C (36.0 - 37.3) 10/21/2016 12:11pm Temperature Source Oral 10/21/2016 12:11pm Pulse Rate (adult) 64 bpm (60 - 100) 10/21/2016 12:11pm Respiratory Rate 16 breaths/min (10 - 20) 10/21/2016 12:11pm O2 Sat by Pulse Oximetry 93 % (90 - 100) 10/21/2016 12:11pm Oxygen Delivery Method Room Air 10/21/2016 12:11pm Oxygen Delivery Method Room Air 10/20/2016 5:36pm Blood Pressure 107/71 mm Hg 10/21/2016 12:11pm Blood Pressure Source Automatic Cuff 10/21/2016 12:11pm Height (Feet) 6 feet 10/20/2016 1:45am Height (Inches) 0.00 inches 10/20/2016 1:45am Weight (Kilograms) 98.800 kg 10/21/2016 7:39am Body Mass Index (BMI) 28.6 10/20/2016 1:45am Results Laboratory Results Test Name Result Units Flags Reference Collection Date/Time Result Date/ Time Comments White Blood Count 10.8 T/MM3 4.5-11.0 10/21/2016 4:09am 10/21/2016 4: 41am Red Blood Count 4.33 M/MM3 L 4.50-5.90 10/21/2016 4:10/21/2016 4: 41am Hemoglobin 14.1 GM/DL 13.5-17.5 10/21/2016 4:10/21/2016 4:41am Hematocrit 41.2 % 41-53 10/21/2016 4:10/21/2016 4:41am Mean Corpuscular Volume 95.2 UM3 80-100 10/21/2016 4:10/21/2016 4: 41am Mean Corpuscular Hemoglobin 32.6 UUG 26-34 10/21/2016 4:2016 4:41am Mean Corpuscular Hemoglobin Concent 34.2 GM/DL 31-37 10/21/2016 4:10/21/2016 4:41am RDW Standard Deviation 46.2 FL 36.9-50.2 10/21/2016 4:10/21/2016 4 :41am Platelet Count 165 T/MM3 130-400 10/21/2016 4:10/21/2016 4:41am Mean Platelet Volume 10.1 UM3 9.4-12.4 10/21/2016 4:10/21/2016 4: 41am Neutrophils (%) (Auto) 73.9 % H 33-66 10/21/2016 4:10/21/2016 4: 41am Lymphocytes (%) (Auto) 17.7 % L 23-45 10/21/2016 4:10/21/2016 4: 41am Monocytes (%) (Auto) 7.9 % 0-9.0 10/21/2016 4:10/21/2016 4:41am Eosinophils (%) (Auto) 0.1 % 0-4 10/21/2016 4:10/21/2016 4:41am Basophils (%) (Auto) 0.1 % 0-2 10/21/2016 4:10/21/2016 4:41am Immature Granulocyte % (Auto) 0.3 % 0.0-0.5 10/21/2016 4:2016 4:41am Absolute Neutrophils (auto) 8.0 T/MM3 H 1.8-7.7 10/21/2016 4:09am 2016 4:41am Absolute Lymphocytes (auto) 1.9 T/MM3 1-4.8 10/21/2016 4:09am 2016 4:41am Absolute Monocytes (auto) 0.9 T/MM3 H 0-0.8 10/21/2016 4:09am 2016 4:41am Absolute Eosinophils (auto) 0.0 T/MM3 0-0.5 10/21/2016 4:09am 2016 4:41am Absolute Basophils (auto) 0.0 T/MM3 0-0.2 10/21/2016 4:09am 10/21/2016 4:41am Absolute Immature Granulocyte (auto 0.03 T/MM3 0.00-0.03 10/21/2016 4: 09am 10/21/2016 4:41am Icterus Index < 2 0-7 10/19/2016 11:49pm 10/20/2016 12:06am Chemistry Specimen Hemolysis < 15 0-25 10/19/2016 11:49pm 10/20/2016 12:06am 0-25: Specimen Exhibited No Hemolysis. Turbidity < 20 0-20 10/19/2016 11:49pm 10/20/2016 12:06am Sodium Level 145 MEQ/L H 134-144 10/19/2016 11:49pm 10/20/2016 12:06am Potassium Level 3.8 MEQ/L 3.6-5 10/19/2016 11:49pm 10/20/2016 12:06am Chloride Level 108 MEQ/L H 98-107 10/19/2016 11:49pm 10/20/2016 12:06am Carbon Dioxide Level 24 MEQ/L 22-30 10/19/2016 11:49pm 10/20/2016 12: 06am Anion Gap 13 MEQ/L 5-15 10/19/2016 11:49pm 10/20/2016 12:06am Blood Urea Nitrogen 9.0 MG/DL 9-20 10/19/2016 11:49pm 10/20/2016 12: 06am Creatinine 0.7 MG/DL L 0.8-1.5 10/19/2016 11:49pm 10/20/2016 12:06am BUN/Creatinine Ratio 13 RATIO 6-26 10/19/2016 11:49pm 10/20/2016 12: 06am Glomerular Filtration Rate Calc 112 10/19/2016 11:49pm 10/20/2016 12:06am Glucose Level 148 MG/DL H 75-110 10/19/2016 11:49pm 10/20/2016 12:06am Calculated Osmolality 281 MOSM/KG H 261-280 10/19/2016 11:49pm 2016 12:06am Calcium Level 9.0 MG/DL 8.4-10.2 10/19/2016 11:49pm 10/20/2016 12:06am Total Bilirubin 0.80 MG/DL 0.20-1.30 10/19/2016 11:49pm 10/20/2016 12: 06am Alkaline Phosphatase 62 U/L 38-126 10/19/2016 11:49pm 10/20/2016 12: 06am Total Protein 5.9 G/DL L 6.3-8.2 10/19/2016 11:49pm 10/20/2016 12:06am Albumin 3.7 G/DL 3.5-5.0 10/19/2016 11:49pm 10/20/2016 12:06am Globulin 2.2 G/DL L 2.4-3.6 10/19/2016 11:49pm 10/20/2016 12:06am Albumin/Globulin Ratio 1.7 RATIO 1.1-2.2 10/19/2016 11:49pm 10/20/2016 12:06am Aspartate Amino Transf (AST/SGOT) 20 U/L 17-59 10/19/2016 11:49pm 10/20 12:06am Alanine Aminotransferase (ALT/SGPT) 32 U/L 21-72 10/19/2016 11:49pm 12:06am Urine Collection Type CLEANCATCH-MIDSTREAM 10/19/2016 11:54pm 10/20 12:05am Urine Color YELLOW YELLOW 10/19/2016 11:54pm 10/20/2016 12:05am Urine Turbidity CLEAR CLEAR 10/19/2016 11:54pm 10/20/2016 12:05am Urine Specific Allons 1.020 1.015-1.025 10/19/2016 11:54pm 2016 12:05am Urine pH 5.5 5.0-8.0 10/19/2016 11:54pm 10/20/2016 12:05am Urine Leukocyte Esterase NEGATIVE NEGATIVE 10/19/2016 11:54pm 2016 12:05am Urine Nitrite NEGATIVE NEGATIVE 10/19/2016 11:54pm 10/20/2016 12: 05am Urine Protein NEGATIVE NEGATIVE 10/19/2016 11:54pm 10/20/2016 12: 05am Urine Glucose (UA) 3+ A NEGATIVE 10/19/2016 11:54pm 10/20/2016 12: 05am Urine Ketones 1+ A NEGATIVE 10/19/2016 11:54pm 10/20/2016 12:05am Urine Urobilinogen 0.2 EU/DL NORMAL 10/19/2016 11:54pm 10/20/2016 12: 05am Urine Bilirubin NEGATIVE NEGATIVE 10/19/2016 11:54pm 10/20/2016 12: 05am Urine Blood NEGATIVE NEGATIVE 10/19/2016 11:54pm 10/20/2016 12:05am Urinalysis Comment MICROSCOPIC NOT IND. 10/19/2016 11:54pm 2016 12:05am Glucometer 214 mg/dL H 75-110 10/21/2016 10:58am 10/21/2016 11:49am Name: DANIEL HOOPER Unit #: [id number] : 1945 Sex: M Admit Date: 10/20/16 Loc / Svc: SRG Discharge Date: DIAGNOSTIC IMAGING REPORT Report [facility] [id number] Ind[facility]: ITS.REASON: RLQ PAIN PROCEDURE: CT ABD/PELVIS W/CONTRAST ONLY: Encounter: Initial Comparison: None Technique: Axial CT images were performed through the abdomen and pelvis after the administration of intravenous contrast. Coronal and sagittal two-dimensional reformats. Automated Exposure Control and Iterative Reconstruction dose reducing techniques were utilized. Contrast: Omnipaque 300 100 mL Findings: Mild atelectasis in the lung bases. The liver appears normal. Gallbladder is surgically absent. The spleen, pancreas and adrenal glands are within normal limits. Small bilateral renal cysts. No abdominal or pelvic lymphadenopathy. The bladder is within normal limits. No free fluid. No evidence of a bowel obstruction. There is an abnormally enlarged inflamed appendix in the right lower quadrant. There is pericolonic inflammatory change with an appendicolith at the appendiceal base. Appendix is dilated up to 1.3 cm in diameter. Bone windows show degenerative and postoperative changes in the lumbar spine. Impression: Acute appendicitis. Emergent surgical consultation is recommended. There is a preliminary report by virtual radiologic. . Procedures Procedure Status Date Provider(s) Laparoscopic appendectomy Completed 10/20/16 ARABELLA RYAN MD Encounters Encounter Location Arrival/Admit Date Discharge/Depart Date Attending Provider Discharged Inpatient (obs) [facility] 10/20/16 1:19am 10/21/16 2: 40pm ARABELLA RYAN MD
--- NOTE | 2016-10-24 14:22 | NUR ---
ATTEMPTED POST HOSPITAL FOLLOW UP PHONE CALL #[phone], PHONE NUMBER IS NOT A WORKING NUMBER.
== END 2016-10-21 14:40 | disposition home or self-care (01) ==
LOC: ED 23:01 → EDHOLD 10-20 01:19 → SRG 10-20 01:19 → SCU 10-20 01:19 → UNDOADMOB 10-20 01:19 → SRG 10-20 01:45 → EDHOLD 10-20 01:45 → SCU 10-21 14:40 → UNDODISOB 10-21 14:40
PROVIDERS: ATTEND Surgery
DX: K35.80 Unspecified acute appendicitis (principal); E11.9 Type 2 diabetes mellitus without complications; I10 Essential (primary) hypertension; E78.5 Hyperlipidemia, unspecified; Z79.84 Long term (current) use of oral hypoglycemic drugs; Z79.899 Other long term (current) drug therapy; Z91.041 Radiographic dye allergy status
CPT/HCPCS: 36415; 44970; 74177; 80053; 81003; 82948; 85025; 88304; 96361; 96374; 96375; 99284; A9270; C9113; G0378; J0330; J1170; J1200; J1335; J2405; J2704; J2930; J3010; J7030; J7050; J7120; Q9967; 99218